=== PATIENT | female | born 1995 | race Asian ===

== ENCOUNTER → 2017-08-09 | Outpatient (CLI) | payer OTHER | LOC: COL.RAD 13:52 | DX: M25.551 Pain in right hip (principal) | CPT/HCPCS: A9585; J3301; Q9967 ==

== ENCOUNTER → 2017-08-27 | Outpatient (CLI) | payer OTHER | LOC: COL.RAD 14:27 | DX: M25.551 Pain in right hip (principal) | CPT/HCPCS: J3301 ==